=== PATIENT | male | born 1985 | race African-American/Black ===

== ENCOUNTER 2024-05-18 04:48 | Emergency (ER) | payer MEDICAID ==
[~2024-05-18] VITALS: Ht 177.8 cm; Wt 100.0 kg
[2024-05-18 04:52] VITALS: O2SAT 100
[2024-05-18] MEDS: MORPHINE SULFATE 4 MG/ML INJ (FOR IV/IM USE) IV ONE (05:41)
[2024-05-18 06:14] LABS: BASOPHILS % 0.9 % (0.0-2.0); EOSINOPHILS % 2.5 % (0.0-5.0); HEMATOCRIT. 37.7 % (42.0-52.0); HEMOGLOBIN. 12.8 g/dL (14.0-18.0); LYMPHOCYTES % 42.2 % (20.0-50.0); MEAN CORPUSCULAR HEMOGLOBIN 28.9 pg (28.0-32.0); MEAN CORPUSCULAR HGB CONC 33.9 g/dL (31.0-37.0); MEAN CORPUSCULAR VOLUME 85.3 fL (80.0-94.0); MEAN PLATELET VOLUME 7.4 fl (7.4-10.4); MONOCYTES % 14.2 % (2.0-8.0); NEUTROPHILS % 40.2 % (40.0-76.0); PLATELET 282 x1000/uL (130-400); RED BLOOD CELL COUNT 4.41 mill/uL (4.7-6.1); RED CELL DISTRIBUTION WIDTH 13.4 % (11.6-14.6); WHITE BLOOD COUNT 3.7 x1000/uL (4.5-11.0)
[2024-05-18 06:17] LABS: CHLORIDE 106 mEq/L (98-107); SODIUM 141 mEq/L (136-145)
[2024-05-18 06:18] LABS: CALCIUM 9.1 mg/dL (8.7-10.4); CARBON DIOXIDE 27 mEq/L (21-32)
[2024-05-18 06:23] LABS: CREATININE 0.9 mg/dL (0.6-1.3); GLUCOSE 103 mg/dL (70-105); UREA NITROGEN BLOOD 11 mg/dL (9-23)
[2024-05-18 06:24] LABS: TROPONIN I HIGH SENSITIVITY 7 ng/L (3.0-53)
[2024-05-18] MEDS ORDERED: IBUP-2029 PO (08:22)
[2024-05-18] MEDS ORDERED: T3 PO (08:22)
[2024-05-18 09:13] VITALS: BP 118/70; PULSE 60; RESP 14; TEMP 36.78072; O2SAT 100
== END 2024-05-18 09:14 | disposition home or self-care (01) ==
LOC: ER 04:48 → EDBEDREQ 05:41 → ER 09:14
DX: S20.212A Contusion of left front wall of thorax, initial encounter (principal); J45.909 Unspecified asthma, uncomplicated; X58.XXXA Exposure to other specified factors, initial encounter; Y93.89 Activity, other specified; Y92.89 Other specified places as the place of occurrence of the external cause; Y99.8 Other external cause status
CPT/HCPCS: 80048; 83880; 85025; 85379; 84484; 36415; 71101; 93005; 96374; 99285; J2270; Z7610; A4606